=== PATIENT | female | born 1945 | race Hispanic/Latino ===

== ENCOUNTER 2018-08-05 09:59 | Emergency (ER) | payer SELFPAY ==
[~2018-08-05] VITALS: Ht 152.4 cm; Wt 49.4 kg
[2018-08-05] MEDS ORDERED: LISINOPRIL10 MG PO (10:47)
[2018-08-05] MEDS ORDERED: METFORMIN500 MG PO (10:47)
[2018-08-05] MEDS ORDERED: ATORVASTATIN CA40 MG PO (10:47)
[2018-08-05] MEDS ORDERED: ATENOLOL25 MG PO (10:48)
[2018-08-05 11:06] LABS: HEMATOCRIT 43.2 % (37.0-47.0); HEMOGLOBIN 14.5 g/dl (12.0-16.0); IMMATURE GRANULOCYTES 0.2 % (0.0-5.0); MEAN CELL VOLUME 93.1 fL CALC (80.0-100.0); MEAN CORPUSCULAR HGB 31.3 pG CALC (26.0-32.0); MEAN CORPUSCULAR HGB CONC 33.6 g/L CALC (32.0-36.0); NEUT# 5.44 thou/uL (2.00-7.15); RED BLOOD COUNT 4.64 mill/uL (4.20-5.60); RED CELL DISTRI WIDTH 11.6 % (11.5-15.5)
[2018-08-05 11:18] LABS: ALBUMIN 4.2 g/dL (3.2-5.0); ALKALINE PHOSPHATASE 162 u/l (38-126); ANION GAP 15 (6-22 (CALC)); BILIRUBIN, TOTAL 0.6 mg/dL (0.0-1.4); BUN 16 mg/dL (8-23); BUN/CREATININE RATIO 36 (12-20 (CALC)); C-REACTIVE PROTEIN 0.8 mg/dL (0-0.9); CARBON DIOXIDE 26 mmol/l (22-30); CHLORIDE 107 mmol/l (95-108); CREATININE 0.4 mg/dL (0.5-1.0); GFR > 60 ML/MIN (>=60 (CALC)); GFR FOR AFR.AMER. > 60 ML/MIN (>=60 (CALC)); POTASSIUM 4.1 mmol/l (3.5-5.1); SGOT/AST 25 u/l (9-36); SODIUM 143 mmol/l (137-146); TOTAL PROTEIN 8.1 g/dL (6.3-8.2)
[2018-08-05 13:22] VITALS: BP 183/82
== END 2018-08-05 13:40 | disposition home or self-care (01) | DRG 301 ==
LOC: ED 09:59
PROVIDERS: Emergency Medicine
DX: E11.51 Type 2 diabetes mellitus with diabetic peripheral angiopathy without gangrene (principal)

== ENCOUNTER 2019-01-27 17:00 | Inpatient (IN) | payer OTHER ==
[~2019-01-27] VITALS: Ht 152.4 cm; Wt 49.0 kg
[~2019-01-27 17:00] MED LIST: ATENOLOL25 MG PO; ATORVASTATIN CA40 MG PO; LISINOPRIL10 MG PO; METFORMIN500 MG PO
[2019-01-27] MEDS ORDERED: LIPITOR10 M1 PO (17:26)
[2019-01-27] MEDS ORDERED: TENORMIN PO (17:26)
[2019-01-27] MEDS ORDERED: LORCET 5-325 MG1 TAB PO (17:27)
[2019-01-27] MEDS ORDERED: METFORMIN500 MG PO (17:28)
[2019-01-27 17:53] LABS: HEMATOCRIT 39.3 % (37.0-47.0); HEMOGLOBIN 13.1 g/dl (12.0-16.0); IMMATURE GRANULOCYTES 0.5 % (0.0-5.0); MEAN CELL VOLUME 92.9 fL CALC (80.0-100.0); MEAN CORPUSCULAR HGB CONC 33.3 g/L CALC (32.0-36.0); NEUT# 10.87 thou/uL (2.00-7.15); RED BLOOD COUNT 4.23 mill/uL (4.20-5.60); RED CELL DISTRI WIDTH 11.4 % (11.5-15.5)
[2019-01-27 18:06] LABS: ALBUMIN 4.4 g/dL (3.2-5.0); ALKALINE PHOSPHATASE 143 u/l (38-126); ANION GAP 15 (6-22 (CALC)); BILIRUBIN, TOTAL 0.6 mg/dL (0.0-1.4); BUN 15 mg/dL (8-23); BUN/CREATININE RATIO 30 (12-20 (CALC)); CARBON DIOXIDE 30 mmol/l (22-30); CHLORIDE 97 mmol/l (95-108); CREATININE 0.5 mg/dL (0.5-1.0); GFR > 60 ML/MIN (>=60 (CALC)); GFR FOR AFR.AMER. > 60 ML/MIN (>=60 (CALC)); POTASSIUM 4.4 mmol/l (3.5-5.1); SGOT/AST 26 u/l (9-36); SODIUM 137 mmol/l (137-146); TOTAL PROTEIN 8.5 g/dL (6.3-8.2)
[2019-01-27 19:30] VITALS: BP 150/53
[2019-01-28 04:00] VITALS: BP 144/71
[2019-01-28 05:03] LABS: HEMATOCRIT 33.9 % (37.0-47.0); HEMOGLOBIN 11.2 g/dl (12.0-16.0); IMMATURE GRANULOCYTES 0.5 % (0.0-5.0); MEAN CELL VOLUME 93.6 fL CALC (80.0-100.0); MEAN CORPUSCULAR HGB 30.9 pG CALC (26.0-32.0); NEUT# 7.83 thou/uL (2.00-7.15); RED BLOOD COUNT 3.62 mill/uL (4.20-5.60); RED CELL DISTRI WIDTH 11.3 % (11.5-15.5)
[2019-01-28 05:33] LABS: ANION GAP 11 (6-22 (CALC)); BUN 10 mg/dL (8-23); BUN/CREATININE RATIO 26 (12-20 (CALC)); CARBON DIOXIDE 26 mmol/l (22-30); CHLORIDE 106 mmol/l (95-108); CREATININE 0.4 mg/dL (0.5-1.0); GFR > 60 ML/MIN (>=60 (CALC)); GFR FOR AFR.AMER. > 60 ML/MIN (>=60 (CALC)); POTASSIUM 4.1 mmol/l (3.5-5.1); SODIUM 138 mmol/l (137-146)
[2019-01-28 07:29] VITALS: BP 149/67
[2019-01-28 11:25] VITALS: BP 170/65
[2019-01-28 14:18] VITALS: BP 129/64
[2019-01-28 15:35] VITALS: BP 140/61
[2019-01-28 20:21] VITALS: BP 163/68
[2019-01-29 01:05] VITALS: BP 166/68
[2019-01-29 04:57] VITALS: BP 152/76
[2019-01-29 05:12] LABS: HEMATOCRIT 35.3 % (37.0-47.0); HEMOGLOBIN 11.7 g/dl (12.0-16.0); IMMATURE GRANULOCYTES 0.4 % (0.0-5.0); MEAN CELL VOLUME 92.9 fL CALC (80.0-100.0); MEAN CORPUSCULAR HGB 30.8 pG CALC (26.0-32.0); MEAN CORPUSCULAR HGB CONC 33.1 g/L CALC (32.0-36.0); NEUT# 9.03 thou/uL (2.00-7.15); RED BLOOD COUNT 3.8 mill/uL (4.20-5.60); RED CELL DISTRI WIDTH 11.4 % (11.5-15.5)
[2019-01-29 05:33] LABS: ALBUMIN 3.6 g/dL (3.2-5.0); ALKALINE PHOSPHATASE 128 u/l (38-126); AMYLASE 35 u/l (30-110); ANION GAP 15 (6-22 (CALC)); BILIRUBIN, TOTAL 0.8 mg/dL (0.0-1.4); BUN 10 mg/dL (8-23); BUN/CREATININE RATIO 23 (12-20 (CALC)); CARBON DIOXIDE 24 mmol/l (22-30); CHLORIDE 105 mmol/l (95-108); CREATININE 0.4 mg/dL (0.5-1.0); GFR > 60 ML/MIN (>=60 (CALC)); GFR FOR AFR.AMER. > 60 ML/MIN (>=60 (CALC)); LIPASE 21 u/l (23-300); POTASSIUM 4.7 mmol/l (3.5-5.1); SGOT/AST 19 u/l (9-36); SODIUM 140 mmol/l (137-146); TOTAL PROTEIN 6.9 g/dL (6.3-8.2)
[2019-01-29 07:54] VITALS: BP 162/80
[2019-01-29 11:26] VITALS: BP 127/60
[2019-01-29 15:05] VITALS: BP 115/62
[2019-01-29 19:50] VITALS: BP 151/61
[2019-01-30 00:33] VITALS: BP 151/69
[2019-01-30 03:49] VITALS: BP 160/72
[2019-01-30 05:54] VITALS: BP 166/69
[2019-01-30 06:07] LABS: ALBUMIN 3.8 g/dL (3.2-5.0); ALKALINE PHOSPHATASE 155 u/l (38-126); ANION GAP 18 (6-22 (CALC)); BILIRUBIN, TOTAL 0.7 mg/dL (0.0-1.4); BUN 7 mg/dL (8-23); BUN/CREATININE RATIO 16 (12-20 (CALC)); CARBON DIOXIDE 23 mmol/l (22-30); CHLORIDE 104 mmol/l (95-108); CREATININE 0.4 mg/dL (0.5-1.0); GFR > 60 ML/MIN (>=60 (CALC)); GFR FOR AFR.AMER. > 60 ML/MIN (>=60 (CALC)); MAGNESIUM 1.9 mg/dL (1.6-2.3); SGOT/AST 19 u/l (9-36); SODIUM 141 mmol/l (137-146); TOTAL PROTEIN 7.2 g/dL (6.3-8.2)
[2019-01-30 08:29] VITALS: BP 111/60
[2019-01-30 11:43] LABS: HEMATOCRIT 38.5 % (37.0-47.0); HEMOGLOBIN 12.6 g/dl (12.0-16.0); IMMATURE GRANULOCYTES 0.4 % (0.0-5.0); MEAN CELL VOLUME 94.8 fL CALC (80.0-100.0); MEAN CORPUSCULAR HGB CONC 32.7 g/L CALC (32.0-36.0); NEUT# 8.92 thou/uL (2.00-7.15); RED BLOOD COUNT 4.06 mill/uL (4.20-5.60); RED CELL DISTRI WIDTH 11.7 % (11.5-15.5)
[2019-01-30 11:47] VITALS: BP 128/44
[2019-01-30] MEDS ORDERED: CIPROFLOXACN500 MG PO (15:07)
[2019-01-30 16:02] VITALS: BP 156/64
== END 2019-01-30 17:20 | disposition home or self-care (01) | DRG 300 ==
LOC: ED 17:00 → ED-I 17:35 → ED 17:52 → MS2 18:02
PROVIDERS: Emergency Medicine; Internal Medicine Nephrology; ADMIT Internal Medicine; ATTEND Internal Medicine
DX: E11.52 Type 2 diabetes mellitus with diabetic peripheral angiopathy with gangrene (principal); I96 Gangrene, not elsewhere classified; L03.115 Cellulitis of right lower limb; E11.65 Type 2 diabetes mellitus with hyperglycemia; I10 Essential (primary) hypertension; E78.5 Hyperlipidemia, unspecified; E86.0 Dehydration; T38.3X6A Underdosing of insulin and oral hypoglycemic [antidiabetic] drugs, initial encounter; Z91.128 Patient's intentional underdosing of medication regimen for other reason; Z79.84 Long term (current) use of oral hypoglycemic drugs
CPT/HCPCS: J3370